=== PATIENT | female | born 1945 | race Caucasian/White ===

== ENCOUNTER 2017-07-04 20:42 | Emergency (ER) | payer MEDICARE ==
[2017-07-04 21:47] VITALS: BP 127/63
--- NOTE | 2017-07-04 22:01 | ED Physician Documentation ---
Lower Extremity Injury - HISTORIAN Historian: patient - HPI Stated Complaint: blister on inside of left ankle Chief Complaint: Lower Extremity Injury Additional Information: stung in garden Onset: days ago (1) Where: home Severity: moderate Context: other (sting/bite) Associated Symptoms:: other (itching/burning) Modifying Factors:: none - ROS CONST: no problems CVS/RESP: none GI/: denies: problems urinating, nausea, vomiting MS/SKIN/LYMPH: none NEURO: denies: headache, head injury, anxiety, depression - PAST HX Past History: other (htn) Immunizations: referred to PCP Allergies/Adverse Reactions: Allergies Allergy/AdvReac Type Severity Reaction Status Date / Time Penicillins Allergy Intermediate Hives Verified 07/04/17 21:21 Home Medications: Ambulatory Orders Medication Instructions Recorded Hydralazine HCl [Apresoline] 25 mg PO D 07/04/17 Lisinopril [Lisinopril] 40 mg PO D 07/04/17 - SOCIAL HX Smoking History: non-smoker Alcohol Use: none Drug Use: none - FAMILY HX Family History: no significant history - VITAL SIGNS Vital Signs: Vital Signs Temp Pulse Resp BP Pulse Ox 97.4 F L 68 16 127/63 99 07/04/17 20:42 07/04/17 22:26 07/04/17 22:26 07/04/17 22:26 07/04/17 22:26 - REVIEWED ASSESSMENTS Nursing Assessment Reviewed: Yes Vitals Reviewed: Yes Progress - Results/Orders Results/Orders: no testing ordered - Progress Progress: pt. tx with abiel and kedrlex dressing plus bactrim ds 1 p.o. x 1 in er Critical Care Note - Critical Care Note Total Time (mins): 0 ED Results Lab/Radiology - Lab Results Lab Results: none ordered - Radiology Radiology Impressions: none ordered - Orders Orders: ED Orders Category Date Time Status Neomycin Hewitt/Bacitrac Zn/Poly [Triple Antibiotic Med 07/04/17 22:03 Discontinued Ointment] 1 each TP NOW ONE Lower Extremities Injury Phy - Physical Exam General Appearance: no acute distress Hips: bilateral hip: non-tender, normal inspection, normal range of motion, no evidence of injury Legs: bilateral: non-tender, normal inspection, normal range of motion, no evidence of injury Knees: bilateral: non-tender, normal inspection, normal range of motion, no evidence of injury Ankle: bilateral: non-tender, normal inspection, normal range of motion, no evidence of injury Foot: left foot: soft tissue tenderness (cellulitis inner aspect left heel), other (blister inner aspect left heel) DTR - Lower Extremities: knee (R): 2+, knee (L): 2+, ankle (R): 2+, ankle (L): 2 + Ligaments: No: laxity on anterior drawer, laxity on posterior drawe, laxity on medial stress, laxity on lateral stress Gait: normal Neuro/Vascular/Tendon: no vascular compromise, motor nml, sensation nml Head/ENT: nml inspection, pharynx nml Neck/Back: nml inspection, non-tender Discharge Clincal Impression: Cellulitis Qualifiers: Site of cellulitis: extremity Site of cellulitis of extremity: lower extremity Laterality: right Qualified Code(s): L03.115 - Cellulitis of right lower limb Referrals: Primary Doctor,No [Primary Care Provider] - 2 Days Comments: Discharged in stable condition with script for Bactrim DS 1 p.o. bid #[id number] Condition: Stable Disposition: 01 HOME, SELF-CARE Decision to Admit: NO Decision Time: 22:00
[2017-07-04] MEDS ORDERED: NEOMYCIN SU/BACITRAC ZN/POLY 1 EACH OINT.PACK TP ONE (22:03)
== END 2017-07-04 22:05 | disposition home or self-care (01) ==
LOC: ED 20:42
DX: L03.115 Cellulitis of right lower limb (principal)
CPT/HCPCS: 99283